=== PATIENT | male | born 1980 | race African-American/Black ===

== ENCOUNTER 2017-05-09 01:41 | Emergency (ER) | payer MEDICAID ==
[~2017-05-09] VITALS: Ht 188 cm; Wt 107.0 kg
[2017-05-09 04:00] VITALS: BP 137/94
[2017-05-09] MEDS ORDERED: MORPHINE SULFATE 10 MG/ML CPJ IM ONE (04:00)
[2017-05-09] MEDS ORDERED: KETOROLAC 30MG/ML VIAL IM ONE (04:00)
[2017-05-09] MEDS ORDERED: AMOXICILLIN/POTASSIUM CLAVULANATE 875/125MG TAB PO ONE (04:00)
== END 2017-05-09 04:51 | disposition home or self-care (01) ==
LOC: ER 01:41
DX: K04.7 Periapical abscess without sinus (principal); R68.84 Jaw pain; F12.10 Cannabis abuse, uncomplicated
CPT/HCPCS: 96372; 99284; J1885; J2270; Z7610

== ENCOUNTER 2022-12-11 08:46 | Emergency (ER) | payer MEDICAID ==
[~2022-12-11] VITALS: Ht 188 cm; Wt 138.0 kg
[2022-12-11] MEDS ORDERED: KETOROLAC 30MG/ML VIAL IV STA (09:05)
[2022-12-11 09:30] LABS: BASOPHILS % 0.9 % (0.0-2.0); EOSINOPHILS % 4.3 % (0.0-5.0); HEMATOCRIT. 40.9 % (42.0-52.0); LYMPHOCYTES % 43.9 % (20.0-50.0); MEAN CORPUSCULAR HEMOGLOBIN 30.6 pg (28.0-32.0); MEAN CORPUSCULAR VOLUME 89.7 fL (80.0-94.0); MEAN PLATELET VOLUME 8.3 fl (7.4-10.4); MONOCYTES % 9.6 % (2.0-8.0); NEUTROPHILS % 41.3 % (40.0-76.0); PLATELET 331 x1000/uL (130-400); RED BLOOD CELL COUNT 4.56 mill/uL (4.7-6.1); RED CELL DISTRIBUTION WIDTH 14.8 % (11.6-14.6)
[2022-12-11 09:42] LABS: CHLORIDE 110 mEq/L (98-107)
[2022-12-11 11:46] LABS: CLARITY URINE CLEAR (CLEAR); COLOR URINE DARK YELLOW (YELLOW); KETONES URINE NEGATIVE (NEGATIVE); LEUKOCYTE ESTERASE URINE 1+ (NEGATIVE); NITRITE URINE POSITIVE (NEGATIVE); OCCULT BLOOD URINE NEGATIVE (NEGATIVE); PH URINE 7.5 (4.5-8.0); PROTEIN URINE NEGATIVE (NEGATIVE); SPECIFIC GRAVITY URINE 1.024 (1.005-1.030)
[2022-12-11] MEDS ORDERED: NITR100C PO (12:58)
[2022-12-11] MEDS ORDERED: T3 PO (12:59)
[2022-12-11 13:29] VITALS: BP 121/69
== END 2022-12-11 13:35 | disposition home or self-care (01) ==
LOC: ER 08:46
DX: N39.0 Urinary tract infection, site not specified (principal)
CPT/HCPCS: 36415; 74176; 80053; 81003; 85025; 96374; 99285; J1885

== ENCOUNTER 2024-05-06 11:50 | Emergency (ER) | payer MEDICAID ==
[~2024-05-06] VITALS: Ht 188 cm; Wt 137.0 kg
[~2024-05-06 11:50] MED LIST: PANT40TA51 MT
[2024-05-06 12:04] VITALS: O2SAT 100
[2024-05-06 12:32] LABS: BASOPHILS % 0.6 % (0.0-2.0); HEMATOCRIT. 40.1 % (42.0-52.0); HEMOGLOBIN. 13.1 g/dL (14.0-18.0); LYMPHOCYTES % 28.4 % (20.0-50.0); MEAN CORPUSCULAR HEMOGLOBIN 30.1 pg (28.0-32.0); MEAN CORPUSCULAR HGB CONC 32.6 g/dL (31.0-37.0); MEAN CORPUSCULAR VOLUME 92.2 fL (80.0-94.0); MEAN PLATELET VOLUME 8.7 fl (7.4-10.4); MONOCYTES % 8.3 % (2.0-8.0); NEUTROPHILS % 60.7 % (40.0-76.0); PLATELET 320 x1000/uL (130-400); RED BLOOD CELL COUNT 4.35 mill/uL (4.7-6.1); RED CELL DISTRIBUTION WIDTH 14.6 % (11.6-14.6); WHITE BLOOD COUNT 6.1 x1000/uL (4.5-11.0)
[2024-05-06 12:45] LABS: CHLORIDE 109 mEq/L (98-107); POTASSIUM 3.9 mEq/L (3.5-5.1); SODIUM 141 mEq/L (136-145)
[2024-05-06 12:46] LABS: CALCIUM 9.6 mg/dL (8.7-10.4); CARBON DIOXIDE 24 mEq/L (21-32)
[2024-05-06 12:51] LABS: CREATININE 0.9 mg/dL (0.6-1.3); GLUCOSE 108 mg/dL (70-105); UREA NITROGEN BLOOD 13 mg/dL (9-23)
[2024-05-06 12:53] LABS: ALANINE AMINOTRANSFERASE 21 IU/L (10-49); ALBUMIN 4.6 g/dL (3.2-4.8); ASPARTATE AMINOTRANSFERASE 20 IU/L (<34); BILIRUBIN DIRECT 0.2 mg/dL (<=3.0); BILIRUBIN TOTAL 0.6 mg/dL (0.1-1.0)
[2024-05-06] MEDS ORDERED: ONDANSETRON HCL 4MG/2ML INJ IV ONE (13:00)
[2024-05-06] MEDS ORDERED: KETOROLAC 15MG/ML VIAL IV ONE (13:00)
[2024-05-06] MEDS ORDERED: MORPHINE SULFATE 4 MG/ML INJ (FOR IV/IM USE) IV ONE (13:00)
[2024-05-06] MEDS ORDERED: ACETAMINOPHEN 325MG TABLET PO ONE (13:00)
[2024-05-06] MEDS: SODIUM CHLORIDE 0.9% 1,000 ML IV ONE (15:33)
[2024-05-06] MEDS: MORPHINE SULFATE 4 MG/ML INJ (FOR IV/IM USE) IV NR (15:42)
[2024-05-06] MEDS: KETOROLAC 15MG/ML VIAL IV NR (15:43)
[2024-05-06] MEDS: ONDANSETRON HCL 4MG/2ML INJ IV NR (15:43)
[2024-05-06] MEDS: ACETAMINOPHEN 325MG TABLET PO NR (15:49)
[2024-05-06 15:51] VITALS: TEMP 36.89184
[2024-05-06 18:37] VITALS: BP 148/82; PULSE 57; RESP 18; O2SAT 98
== END 2024-05-06 19:11 | disposition left against medical advice (07) ==
LOC: ER 12:01 → EDBEDREQ 16:30 → ER 19:11
DX: K80.50 Calculus of bile duct without cholangitis or cholecystitis without obstruction (principal); Z79.899 Other long term (current) drug therapy
CPT/HCPCS: 99285; 74176; 96374; 76705; 96375; 96361; 80076; 80048; 83690; 85025; 86850; 86900; 86901; 36415; 93005; J1885; J2405; J2270; J7030